=== PATIENT | female | born 1945 | race Caucasian/White ===

== ENCOUNTER 2017-06-28 12:30 | Inpatient (IN) | payer MEDICARE ==
[2017-06-28 13:12] VITALS: BMI 34.1
[2017-07-04] MEDS ORDERED: Vancomycin HCl 1.5 GM in Sodium Chloride 0.9% 250 ML 300 ML IVPB SCH ×2 (06:00→18:00)
[2017-07-04] MEDS ORDERED: Fentanyl 100 MCG/2 ML VIAL ONE ×3 (06:08→10:25)
[2017-07-04] MEDS ORDERED: Sodium Chloride 0.9% 100 ML ONE ×2 (06:12→09:09)
[2017-07-04] MEDS ORDERED: Ropivacaine 0.2% HCl/PF 20 ML ONE (06:21)
[2017-07-04] MEDS ORDERED: Lidocaine 1% (PF) 30 ML VIAL ONE (06:21)
[2017-07-04] MEDS ORDERED: Midazolam HCl 2 mg/2 ml Vial ONE (06:21)
[2017-07-04] MEDS ORDERED: Scopolamine 1.5 mg/72 hour Patch ONE (06:28)
[2017-07-04] MEDS ORDERED: Bupivacaine PF 0.5% 30 ML VIAL ONE ×2 (06:51→07:08)
[2017-07-04] MEDS ORDERED: traMADol HCl 50 MG TAB PO PRN ×3 (07:11→09:01)
[2017-07-04] MEDS ORDERED: Promethazine HCl 25 MG/ML VIAL IM PRN ×3 (07:11→10:05)
[2017-07-04] MEDS ORDERED: Ondansetron HCl/PF 4 MG/2 ML Vial IVP PRN ×3 (07:11→10:05)
[2017-07-04] MEDS ORDERED: Ketorolac Tromethamine 30 MG/ML VIAL IVP PRN (07:11)
[2017-07-04] MEDS ORDERED: Zolpidem Tartrate 5 MG TAB PO PRN (07:11)
[2017-07-04] MEDS ORDERED: Ropivacaine HCl/PF 250 ML in Premix Bag 1 BAG NERVE BLCK SCH (07:11)
[2017-07-04] MEDS ORDERED: Fentanyl 100 MCG/2 ML VIAL IV PRN (07:12)
[2017-07-04] MEDS ORDERED: Ketorolac Tromethamine 30 MG/ML VIAL ONE (07:20)
[2017-07-04] MEDS ORDERED: Lidocaine 1% PF 5 ML VIAL ONE (07:20)
[2017-07-04] MEDS ORDERED: ePHEDrine/0.9% NaCl/PF SYRINGE 50 mg/10 ml ONE (07:20)
[2017-07-04] MEDS ORDERED: Dexamethasone 20 MG/5 ML VIAL ONE (07:20)
[2017-07-04] MEDS ORDERED: Propofol 200 MG/20 ML VIAL ONE (07:20)
[2017-07-04] MEDS ORDERED: Ondansetron HCl/PF 4 MG/2 ML Vial ONE (07:20)
[2017-07-04] MEDS ORDERED: Tranexamic Acid 1,000 MG in Sodium Chloride 0.9% 100 ML IVPB SCH (09:00)
[2017-07-04] MEDS ORDERED: diphenhydrAMINE HCl 25 MG CAP PO PRN (09:01)
[2017-07-04] MEDS ORDERED: Acetaminophen 325 MG TAB PO PRN (09:01)
--- NOTE | 2017-07-04 09:35 | OP ---
DATE OF PROCEDURE: 07/04/2017 PREOPERATIVE DIAGNOSIS: Right knee osteoarthrosis. POSTOPERATIVE DIAGNOSIS: Right knee osteoarthrosis. PROCEDURE PERFORMED: Right total knee replacement using Tebla pinless navigation. SURGEON: Aki Doan M.D. HADOOP JAVA DEVELOPER: Jonathan Birmingham PA-C. BLOOD LOSS: Minimal. COMPLICATIONS: None. ANESTHESIA: The patient had general anesthetic as well as preoperative blocks. IMPLANTS: To the right knee is Triathlon total knee system. We used a size 4 cruciate retaining ri ght femur. We used a size 4 universal tibial baseplate. We used a 4 x 11 mm CSX3 tibial bearing an d an asymmetric 29 x 9 X3 patella. DISPOSITION: She did go to the recovery room in stable condition. INDICATIONS: A 72-year-old female who has failed all nonoperative treatment for a significant joint pain and at this time, she wished to have her knee replaced. PROCEDURE IN DETAIL: After all appropriate consent forms were explained and signed, the patient was taken back to the Operating Room and at this time was given general anesthetic. Once the level of anesthesia was appropriate, a well-padded tourniquet was placed on the right leg and the leg was the n prepped and draped in standard surgical fashion. The limb was exsanguinated and tourniquet taken up to 300 mmHg. Midline incision was made with a 10 blade down through the skin and subcutaneous ti ssue. Bovie electrocautery was used to coagulate any brisk venous bleeding. A new blade was used t o make a medial parapatellar arthrotomy. Small subperiosteal release was performed medially and exc ess fat pad was removed. The knee was flexed up to gain access to the femur. The femur was navigat ed and distal femoral resection was made. Epicondylar access was used to align our sizing jig and t his was pinned in place. We sized our femur to be a 4, 4:1 cutting block was applied and pinned. An terior and posterior chamfer cuts were then made. We navigated out our proximal tibia and made our proximal tibial resection. Spreaders were used to remove any posterior osteophytes off the back of the femur as well as remaining meniscal tissue . A long alignment gracie was then used to achieve corre ct rotation of our tibial baseplate and a size 4 was chosen. This was pinned in place. We trialed the polyethylene and a 4 polyethylene gave us full extension and good stability throughout range of motion. Two towel clips and a saw were used to cut our patella. Three lug nuts were drilled and 29 x 9 X3 patella was trialed which sat nicely in the trochlear groove. We then drilled our femur and punched our tibia. All components were removed. The knee was thoroughly irrigated and dried. Ted ent was mixed into the cement gun on the back table. Components were then placed. The knee was hel d out in full extension until the cement had dried. All excess bone cement was removed. Multiple # 2 Vicryl stitches as well as a Quill was used to close our extensor mechanism. 0 Quill followed by a running Monoderm was then used to close the skin. Surgicel glue was then used on the skin. Once this had dried, soft tissue dressing was applied to the limb, tourniquet was let down, and the toes pinked up nicely. The patient was then awakened and taken to the Recovery Room in stable condition. All counts were correct at the end of the case. The patient did receive preoperative IV antibioti cs. The patient was injected with Exparel for postoperative pain relief.
[2017-07-04] MEDS ORDERED: Promethazine HCl 25 MG/ML VIAL SLOW IVP PRN (10:05)
[2017-07-04] MEDS: Sodium Chloride 0.9% 1,000 ML IV SCH ×2 (11:52→19:35)
--- NOTE | 2017-07-04 11:55 | PDOC.PN ---
- Subjective Encounter Start Date: 07/04/17 Encounter Start Time: 11:53 Pt seen for management of medical comorbidities, including hypertension. Denies chest pain, shortness of breath, fevers or chills. - Objective MAR Reviewed: Yes Vital Signs & Weight: Vital Signs (12 hours) Temp Pulse Resp BP Pulse Ox 07/04/17 11:36 98.6 F 62 18 92 L 07/04/17 11:31 98.6 F 62 18 148/76 H 92 L Weight Weight 205 lb Phys Exam - Physical Examination Obese HEENT: moist MMs, oral pharynx no lesions Neck: supple Respiratory: no wheezing, no rales, no rhonchi, clear to auscultation bilateral Cardiovascular: RRR Gastrointestinal: soft s/p R knee surgery Neurological: moves all 4 limbs Psychiatric: normal affect Dx/Plan (1) Hypertension Code(s): I10 - ESSENTIAL (PRIMARY) HYPERTENSION Status: Chronic (2) Hypothyroidism Code(s): E03.9 - HYPOTHYROIDISM, UNSPECIFIED Status: Chronic (3) Dyslipidemia Code(s): E78.5 - HYPERLIPIDEMIA, UNSPECIFIED Status: Chronic - Plan * . Resume home medications, monitor vital signs and titrate antihypertensives as needed. PRN IV hydralazine for elevated blood pressure. Resume statin Resume synthroid. s/p R knee surgery. DVT prophylaxis and pain management per orthopedic surgery service. Code status: FULL Review of Systems - Review of Systems Constitutional: negative: Fever, Chills, Sweats, Weakness, Malaise Respiratory: negative: Cough, Dry, Shortness of Breath, Hemoptysis, SOB with Excertion, Pleuritic Pain, Sputum, Wheezing Cardiovascular: negative: Chest Pain, Palpitations, Orthopnea, Paroxysmal Noc. Dyspnea, Edema, Light Headedness - Medications/Allergies Allergies/Adverse Reactions: Allergies Allergy/AdvReac Type Severity Reaction Status Date / Time hydrocodone Allergy N/V Verified 06/28/17 13:12 hydromorphone HCl Allergy N/V Verified 06/28/17 13:12 [From Dilaudid] Medications: Current Medications Acetaminophen (Tylenol) 650 mg PO Q4H PRN PRN Reason: BARNARD/ T > 101F; Mild Pain (1-3) Aspirin (Aspirin) 325 mg PO BID [facility] Atorvastatin Calcium (Lipitor) 10 mg PO HS [facility] Calcium/Vitamin D (Caltrate 600 + Vit D) 1 tab PO QPM [facility] Cefazolin Sodium (Ancef) 2 gm SLOW IVP 0600,1400,2200 [facility] Stop: 07/04/17 22:01 Coenzyme Q10 (Coenzyme Q10) 200 mg PO QAM [facility] Diphenhydramine HCl (Benadryl) 25 mg PO Q6H PRN PRN Reason: Itching Fentanyl (Sublimaze) 50 mcg IV Q1H PRN PRN Reason: BT PAIN Fentanyl (Pacu-Sublimaze) 50 mcg SLOW IVP Q10MIN PRN PRN Reason: Moderate to Severe Pain (6-10) Stop: 07/04/17 13:05 Ferrous Gluconate (Fergon) 324 mg PO BID-WM [facility] Lisinopril/HCTZ (Prinizide 10-12.5) 1 tab PO QAM [facility] Lisinopril/HCTZ (Prinizide 10-12.5) 1 tab PO ONE [facility] Ropivacaine 250 ml/ Device 250 mls @ 0 mls/hr NERVE BLCK INF [facility] PRN Reason: As Directed Sodium Chloride (Normal Saline 0.9%) 1,000 mls @ 100 mls/hr IV .Q10H [facility] Vancomycin HCl 1.5 gm/ Sodium (Chloride) 300 mls @ 200 mls/hr IVPB 1800 [facility] Stop: 07/04/17 19:29 Iron/Minerals/Multivitamins (Theragran M) 1 tab PO DAILY [facility] Ketorolac Tromethamine (Toradol) 15 mg IVP Q6H PRN PRN Reason: Moderate Pain (4-6) Stop: 07/07/17 07:12 Levothyroxine Sodium (Synthroid) 100 mcg PO 0600 [facility] Metoprolol Succinate (Toprol Xl) 100 mg PO HS [facility] Metoprolol Succinate (Toprol Xl) 50 mg PO QAM [facility] Ondansetron HCl (Zofran) 4 mg IVP Q6H PRN PRN Reason: Nausea/Vomiting Ondansetron HCl (Pacu-Zofran) 4 mg IVP ONE PRN PRN Reason: Nausea/Vomiting Stop: 07/04/17 13:05 Pentazocine HCl/Naloxone HCl (Talwin Nx) 2 tab PO Q6HR PRN PRN Reason: Severe Pain (7-10) Stop: 07/07/17 09:04 Promethazine HCl (Phenergan) 12.5 mg IM Q4H PRN PRN Reason: Nausea/Vomiting Promethazine HCl (Pacu-Phenergan) 6.25 mg SLOW IVP ONE PRN PRN Reason: Nausea/Vomiting Stop: 07/04/17 13:05 Promethazine HCl (Pacu-Phenergan) 6.25 mg IM ONE PRN PRN Reason: Nausea/Vomiting Stop: 07/04/17 13:05 Senna/Docusate Sodium (Senokot S) 2 tab PO BID [facility] Sodium Chloride (Flush - Normal Saline) 10 ml IVF PRN PRN PRN Reason: Saline Flush Tramadol HCl (Ultram) 50 mg PO Q6H PRN PRN Reason: Mild Pain (1-3) Tramadol HCl (Ultram) 100 mg PO Q6H PRN PRN Reason: Moderate Pain 4-6 Zolpidem Tartrate (Ambien) 5 mg PO HSPRN PRN PRN Reason: Insomnia
[2017-07-04] MEDS ORDERED: Lisinopril/Hydrochlorothiazide 10 mg/12.5 mg Tablet PO SCH (12:00)
[2017-07-04] MEDS ORDERED: Clopidogrel Bisulfate 75 MG TAB ONE (13:56)
[2017-07-04] MEDS: Atorvastatin Calcium 10 MG TAB PO SCH (20:05)
[2017-07-04] MEDS: Calcium Carbonate + Vit D 1 TAB PO SCH (20:05)
[2017-07-04] MEDS: Aspirin 325 MG TAB PO SCH (20:05)
[2017-07-04] MEDS: Zolpidem Tartrate 5 MG TAB PO PRN (20:07)
[2017-07-05] MEDS: Sodium Chloride 0.9% 1,000 ML IV SCH ×2 (04:19→16:18)
[2017-07-05] MEDS: Levothyroxine Sodium 100 MCG TAB PO SCH (05:29)
[2017-07-05 06:15] LABS: Hematocrit 35.6 % (36.0-47.0); Mean Platelet Volume 8.7 fL (7.4-10.4); White Blood Cell (WBC) Count 13.7 thou/uL (4.8-10.8)
[2017-07-05] MEDS: Pentazocine HCl/Naloxone HCl 50/0.5 MG TAB PO PRN ×2 (06:37→13:12)
[2017-07-05] MEDS: Lisinopril/Hydrochlorothiazide 10 mg/12.5 mg Tablet PO SCH (09:14)
[2017-07-05] MEDS: Ubidecarenone 50 MG CAP PO SCH (09:15)
[2017-07-05] MEDS: Aspirin 325 MG TAB PO SCH ×2 (09:16→20:49)
[2017-07-05] MEDS: Multivitamin W/ Minerals 1 TAB PO SCH (09:16)
[2017-07-05] MEDS: Senokot S 8.6-50 MG TAB PO SCH ×2 (09:16→20:49)
[2017-07-05] MEDS: Ferrous Gluconate 324 MG TAB PO SCH ×2 (09:16→17:29)
--- NOTE | 2017-07-05 11:35 | PDOC.PN ---
- Subjective Encounter Start Date: 07/05/17 Encounter Start Time: 08:15 Subjective: no sob or chest pain - Objective MAR Reviewed: Yes Vital Signs & Weight: Vital Signs (12 hours) Temp Pulse Resp BP BP Pulse Ox 07/05/17 09:14 60 124/75 07/05/17 08:00 98.5 F 60 16 124/75 93 L 07/05/17 04:00 98.5 F 57 L 18 114/72 93 L 07/05/17 00:00 98.4 F 80 18 101/63 93 L Weight Weight 205 lb I&O: 07/04/17 07/05/17 07/06/17 06:59 06:59 06:59 Intake Total 3980 Output Total 3300 Balance 680 Result Diagrams: 07/05/17 05:18 Phys Exam - Physical Examination HEENT: PERRLA, moist MMs Neck: no JVD, supple Respiratory: no wheezing, no rales Cardiovascular: RRR, no significant murmur Gastrointestinal: soft, non-tender, positive bowel sounds Musculoskeletal: no edema, pulses present Neurological: non-focal, moves all 4 limbs Psychiatric: A&O x 3 Dx/Plan (1) Status post total right knee replacement Code(s): Z96.651 - PRESENCE OF RIGHT ARTIFICIAL KNEE JOINT Status: Acute (2) Dyslipidemia Code(s): E78.5 - HYPERLIPIDEMIA, UNSPECIFIED Status: Chronic (3) Hypertension Code(s): I10 - ESSENTIAL (PRIMARY) HYPERTENSION Status: Chronic Qualifiers: Hypertension type: essential hypertension Qualified Code(s): I10 - Essential (primary) hypertension (4) Hypothyroidism Code(s): E03.9 - HYPOTHYROIDISM, UNSPECIFIED Status: Chronic Qualifiers: Hypothyroidism type: unspecified Qualified Code(s): E03.9 - Hypothyroidism , unspecified - Plan is on asp bid for dvt prophylaxis -: PT/OT per ortho advice -: oral iron -: continue toprol and prinizide as before * . Review of Systems - Medications/Allergies Allergies/Adverse Reactions: Allergies Allergy/AdvReac Type Severity Reaction Status Date / Time hydrocodone Allergy N/V Verified 06/28/17 13:12 hydromorphone HCl Allergy N/V Verified 06/28/17 13:12 [From Dilaudid] Medications: Current Medications Acetaminophen (Tylenol) 650 mg PO Q4H PRN PRN Reason: BARNARD/ T > 101F; Mild Pain (1-3) Aspirin (Aspirin) 325 mg PO BID [facility] Last Admin: 07/05/17 09:16 Dose: 325 mg Atorvastatin Calcium (Lipitor) 10 mg PO HS [facility] Last Admin: 07/04/17 20:05 Dose: 10 mg Calcium/Vitamin D (Caltrate 600 + Vit D) 1 tab PO QPM [facility] Last Admin: 07/04/17 20:05 Dose: 1 tab Coenzyme Q10 (Coenzyme Q10) 200 mg PO QAM [facility] Last Admin: 07/05/17 09:15 Dose: 200 mg Diphenhydramine HCl (Benadryl) 25 mg PO Q6H PRN PRN Reason: Itching Fentanyl (Sublimaze) 50 mcg IV Q1H PRN PRN Reason: BT PAIN Ferrous Gluconate (Fergon) 324 mg PO BID-[facility] Last Admin: 07/05/17 09:16 Dose: 324 mg Lisinopril/HCTZ (Prinizide 10-12.5) 1 tab PO QAM [facility] Last Admin: 07/05/17 09:14 Dose: 1 tab Hydralazine HCl (Apresoline) 10 mg SLOW IVP Q6H PRN PRN Reason: SBP Greater Than 170 Ropivacaine 250 ml/ Device 250 mls @ 0 mls/hr NERVE BLCK INF [facility] PRN Reason: As Directed Sodium Chloride (Normal Saline 0.9%) 1,000 mls @ 100 mls/hr IV .Q10H [facility] Last Admin: 07/05/17 04:19 Dose: Not Given Iron/Minerals/Multivitamins (Theragran M) 1 tab PO DAILY [facility] Last Admin: 07/05/17 09:16 Dose: 1 tab Ketorolac Tromethamine (Toradol) 15 mg IVP Q6H PRN PRN Reason: Moderate Pain (4-6) Stop: 07/07/17 07:12 Levothyroxine Sodium (Synthroid) 100 mcg PO 0600 [facility] Last Admin: 07/05/17 05:29 Dose: 100 mcg Metoprolol Succinate (Toprol Xl) 100 mg PO HS [facility] Last Admin: 07/04/17 20:05 Dose: 100 mg Metoprolol Succinate (Toprol Xl) 50 mg PO QAM [facility] Last Admin: 07/05/17 09:16 Dose: 50 mg Ondansetron HCl (Zofran) 4 mg IVP Q6H PRN PRN Reason: Nausea/Vomiting Pentazocine HCl/Naloxone HCl (Talwin Nx) 2 tab PO Q6HR PRN PRN Reason: Severe Pain (7-10) Stop: 07/07/17 09:04 Last Admin: 07/05/17 06:37 Dose: 2 tab Promethazine HCl (Phenergan) 12.5 mg IM Q4H PRN PRN Reason: Nausea/Vomiting Senna/Docusate Sodium (Senokot S) 2 tab PO BID [facility] Last Admin: 07/05/17 09:16 Dose: 2 tab Sodium Chloride (Flush - Normal Saline) 10 ml IVF PRN PRN PRN Reason: Saline Flush Tramadol HCl (Ultram) 50 mg PO Q6H PRN PRN Reason: Mild Pain (1-3) Tramadol HCl (Ultram) 100 mg PO Q6H PRN PRN Reason: Moderate Pain 4-6 Zolpidem Tartrate (Ambien) 5 mg PO HSPRN PRN PRN Reason: Insomnia Last Admin: 07/04/17 20:07 Dose: 5 mg
[2017-07-05] MEDS: Atorvastatin Calcium 10 MG TAB PO SCH (20:49)
[2017-07-05] MEDS: Calcium Carbonate + Vit D 1 TAB PO SCH (20:49)
[2017-07-05] MEDS: Zolpidem Tartrate 5 MG TAB PO PRN (20:50)
[2017-07-06] MEDS: Sodium Chloride 0.9% 1,000 ML IV SCH ×2 (01:55→12:57)
[2017-07-06 05:52] LABS: Red Blood Cell (RBC) Count 3.62 mill/uL (4.20-5.40)
[2017-07-06] MEDS: Pentazocine HCl/Naloxone HCl 50/0.5 MG TAB PO PRN ×2 (06:35→14:02)
[2017-07-06] MEDS: Levothyroxine Sodium 100 MCG TAB PO SCH (06:36)
[2017-07-06] MEDS: Lisinopril/Hydrochlorothiazide 10 mg/12.5 mg Tablet PO SCH (08:48)
[2017-07-06] MEDS: Senokot S 8.6-50 MG TAB PO SCH (08:49)
[2017-07-06] MEDS: Ubidecarenone 50 MG CAP PO SCH (08:49)
[2017-07-06] MEDS: Multivitamin W/ Minerals 1 TAB PO SCH (08:50)
[2017-07-06] MEDS: Ferrous Gluconate 324 MG TAB PO SCH (08:50)
[2017-07-06] MEDS: Aspirin 325 MG TAB PO SCH (08:50)
[2017-07-06 11:49] VITALS: BP 130/61; TEMP 98.4
--- NOTE | 2017-07-06 14:24 | PDOC.PN ---
- Subjective Encounter Start Date: 07/06/17 Encounter Start Time: 10:00 Subjective: no sob or chest pain, feels better -: is working with PT - Objective MAR Reviewed: Yes Vital Signs & Weight: Vital Signs (12 hours) Temp Pulse Resp BP BP BP Pulse Ox 07/06/17 11:35 98.4 F 63 14 130/61 90 L 07/06/17 08:48 69 131/62 07/06/17 08:29 99.1 F 07/06/17 08:00 99.1 F 69 14 90 L 07/06/17 07:59 100.2 F H 69 14 131/62 90 L 07/06/17 03:54 98.3 F 70 19 127/70 95 Weight Admit Weight 205 lb Weight 205 lb I&O: 07/05/17 07/06/17 07/07/17 06:59 06:59 06:59 Intake Total 3980 960 Output Total 3300 1900 Balance 680 -940 Result Diagrams: 07/06/17 05:23 Phys Exam - Physical Examination HEENT: PERRLA, moist MMs Neck: no JVD, supple Respiratory: no wheezing, no rales Cardiovascular: RRR, no significant murmur Gastrointestinal: soft, non-tender, positive bowel sounds Musculoskeletal: no edema, pulses present Neurological: non-focal, moves all 4 limbs Psychiatric: A&O x 3 Dx/Plan (1) Status post total right knee replacement Code(s): Z96.651 - PRESENCE OF RIGHT ARTIFICIAL KNEE JOINT Status: Acute (2) Dyslipidemia Code(s): E78.5 - HYPERLIPIDEMIA, UNSPECIFIED Status: Chronic (3) Hypertension Code(s): I10 - ESSENTIAL (PRIMARY) HYPERTENSION Status: Chronic Qualifiers: Hypertension type: essential hypertension Qualified Code(s): I10 - Essential (primary) hypertension (4) Hypothyroidism Code(s): E03.9 - HYPOTHYROIDISM, UNSPECIFIED Status: Chronic Qualifiers: Hypothyroidism type: unspecified Qualified Code(s): E03.9 - Hypothyroidism , unspecified - Plan hemostable -: dc plan per ortho advice home today * . Review of Systems - Medications/Allergies Allergies/Adverse Reactions: Allergies Allergy/AdvReac Type Severity Reaction Status Date / Time hydrocodone Allergy N/V Verified 06/28/17 13:12 hydromorphone HCl Allergy N/V Verified 06/28/17 13:12 [From Dilaudid] Medications: Current Medications Acetaminophen (Tylenol) 650 mg PO Q4H PRN PRN Reason: BARNARD/ T > 101F; Mild Pain (1-3) Aspirin (Aspirin) 325 mg PO BID [facility] Last Admin: 07/06/17 08:50 Dose: 325 mg Atorvastatin Calcium (Lipitor) 10 mg PO HS [facility] Last Admin: 07/05/17 20:49 Dose: 10 mg Calcium/Vitamin D (Caltrate 600 + Vit D) 1 tab PO QPM [facility] Last Admin: 07/05/17 20:49 Dose: 1 tab Coenzyme Q10 (Coenzyme Q10) 200 mg PO QAM [facility] Last Admin: 07/06/17 08:49 Dose: 200 mg Diphenhydramine HCl (Benadryl) 25 mg PO Q6H PRN PRN Reason: Itching Fentanyl (Sublimaze) 50 mcg IV Q1H PRN PRN Reason: BT PAIN Ferrous Gluconate (Fergon) 324 mg PO BID-[facility] Last Admin: 07/06/17 08:50 Dose: 324 mg Lisinopril/HCTZ (Prinizide 10-12.5) 1 tab PO QAM [facility] Last Admin: 07/06/17 08:48 Dose: 1 tab Hydralazine HCl (Apresoline) 10 mg SLOW IVP Q6H PRN PRN Reason: SBP Greater Than 170 Ropivacaine 250 ml/ Device 250 mls @ 0 mls/hr NERVE BLCK INF [facility] PRN Reason: As Directed Last Admin: 07/05/17 11:45 Dose: 250 mls Sodium Chloride (Normal Saline 0.9%) 1,000 mls @ 100 mls/hr IV .Q10H [facility] Last Admin: 07/06/17 12:57 Dose: Not Given Iron/Minerals/Multivitamins (Theragran M) 1 tab PO DAILY [facility] Last Admin: 07/06/17 08:50 Dose: 1 tab Ketorolac Tromethamine (Toradol) 15 mg IVP Q6H PRN PRN Reason: Moderate Pain (4-6) Stop: 07/07/17 07:12 Levothyroxine Sodium (Synthroid) 100 mcg PO 0600 [facility] Last Admin: 07/06/17 06:36 Dose: 100 mcg Metoprolol Succinate (Toprol Xl) 100 mg PO [facility] Last Admin: 07/05/17 20:49 Dose: 100 mg Metoprolol Succinate (Toprol Xl) 50 mg PO QAM [facility] Last Admin: 07/06/17 08:49 Dose: 50 mg Ondansetron HCl (Zofran) 4 mg IVP Q6H PRN PRN Reason: Nausea/Vomiting Pentazocine HCl/Naloxone HCl (Talwin Nx) 2 tab PO Q6HR PRN PRN Reason: Severe Pain (7-10) Stop: 07/07/17 09:04 Last Admin: 07/06/17 14:02 Dose: 2 tab Promethazine HCl (Phenergan) 12.5 mg IM Q4H PRN PRN Reason: Nausea/Vomiting Senna/Docusate Sodium (Senokot S) 2 tab PO BID [facility] Last Admin: 07/06/17 08:49 Dose: 2 tab Sodium Chloride (Flush - Normal Saline) 10 ml IVF PRN PRN PRN Reason: Saline Flush Tramadol HCl (Ultram) 50 mg PO Q6H PRN PRN Reason: Mild Pain (1-3) Tramadol HCl (Ultram) 100 mg PO Q6H PRN PRN Reason: Moderate Pain 4-6 Zolpidem Tartrate (Ambien) 5 mg PO HSPRN PRN PRN Reason: Insomnia Last Admin: 07/05/17 20:50 Dose: 5 mg
--- NOTE | 2017-07-06 22:22 | DIS ---
DATE OF ADMISSION: 07/04/2017 DATE OF DISCHARGE: 07/06/2017 DISCHARGE DISPOSITION: To home. PRIMARY DISCHARGE DIAGNOSIS: Patient is status post right total knee replacement. SECONDARY DISCHARGE DIAGNOSES: Hypertension, dyslipidemia, hypothyroidism. PROCEDURES DONE DURING HOSPITALIZATION: The patient has had elective right total knee replacement d one by Dr. Aki Doan on 07/04/2017. Discharge H and H is 11 and 34. DISCHARGE MEDICATIONS: Aspirin 325 mg p.o. twice daily for post-knee replacement, DVT prophylaxis, Lipitor 10 mg p.o. at bedtime, calcium with vitamin D 600 mg p.o. q.p.m., Synthroid 100 mcg p.o. gerri ly, lisinopril with hydrochlorothiazide 10/12.5 mg p.o. q.a.m., Toprol-XL 100 mg p.o. daily, CoQ10 2 00 mg p.o. q.a.m. ALLERGIES: Allergic to HYDROCODONE and HYDROMORPHONE. DISCHARGE PLAN: Patient is to follow up with Dr. Doan as advised and primary care physician in we . BRIEF COURSE DURING HOSPITALIZATION: The patient was electively got admitted for right total knee r eplacement by Dr. Doan. This was accomplished on 07/04/2017. Postop [facility] physicians were consulte d for co-management of medical issues. She has remained hemodynamically stable. She is participati ng with physical therapy. She has been cleared by Dr. Doan for discharge and needs to follow up wit h him as advised. Please see a [id number] documentation on [facility] for the day of discharge.
== END 2017-07-06 15:23 | disposition home health service (06) | DRG 470 ==
LOC: SURG A 07-04 05:29 → SJJU 07-04 10:04
PROVIDERS: ADMIT Orthopaedic Surgery; ATTEND Orthopaedic Surgery
PROC: 0SRC0J9 Replacement of Right Knee Joint with Synthetic Substitute, Cemented, Open Approach (ICD-10-PCS; principal; 2017-07-04)
PROC: 3E0T3CZ (ICD-10-PCS; 2017-07-04)
DX: M17.11 Unilateral primary osteoarthritis, right knee (principal); I10 Essential (primary) hypertension; E78.5 Hyperlipidemia, unspecified; E03.9 Hypothyroidism, unspecified; Z79.82 Long term (current) use of aspirin; Z88.5 Allergy status to narcotic agent
CPT/HCPCS: 36415; 85027; C1713; C1776; G8978-GP-CL; G8979-GP-CJ; J1100; J1885; J2001; J2250; J2405; J2704; J2795; J3010; J3370; J7050; S0020